=== PATIENT | female | born 1960 | race African-American/Black ===

== ENCOUNTER → 2018-06-05 12:54 | Outpatient (CLI) | payer MEDICARE, BC ==
[2015-03-22 06:36] VITALS: BMI 25.4
[~2018-06-05 12:54] MED LIST: ALBUTEROL2.5 MG/3 M UPD; AROMASIN25 MG PO; ASPIRIN81 MG PO; BACTROBAN 22 GM22 GM; BENADRYL25 M1 PO; BENADRYL50 MG PO; COLACE100 MG PO; COREG6.25 MG PO; FEMARA2.5 MG PO; FLEXERIL10 MG PO; FLORAJEN3 CAPS460 MG PO; HYDROCODONE-APA1 TAB PO; LEVAQUIN500 MG PO; LOPRESSOR25 MG PO; LOPRESSOR50 MG; MEGACE40 MG PO; MIDODRINE HCL2.5 MG PO; MOBIC7.5 MG PO; NEPHROCAPS SOFTG1 MG PO; NORCO 10/325 TA1 TA1 PO; NORCO 5/325 TAB1 TA1 PO; Narcan INJ IV; ONDANSETRON4 MG/2 M3 IV; PREDNISONE50 MG; PREDNISONE50 MG PO; PROAIR HFA8.5 GM INH; PROAMATINE10 MG PO; PROCRIT/EP4000 UNITS SC; PROTONIX40 MG; PROTONIX40 MG PO; REGLAN INJ10 MG/2 ML IV; RENA-VITE TABL0.8 MG PO; RENVELA800 MG PO; SENOKOT-S TABLE1 TAB PO; SENSIPAR30 MG PO; TESSALON PERLE100 MG PO; TUMS500 MG PO; [UNRECOGNIZED DRUG - CODE]
== END | disposition home or self-care (01) ==
LOC: D.US 12:54
DX: I65.23 Occlusion and stenosis of bilateral carotid arteries (principal)

== ENCOUNTER 2018-06-19 06:26 | Outpatient (CLI) | payer MEDICARE ==
[~2018-06-19] VITALS: Ht 167.6 cm; Wt 76.8 kg
--- NOTE | ~2018-06-19 | HEMODYNAMI ---
PATIENT:DONIS LEDBETTER MEDICAL RECORD: [id number] : 60 LOCATION:D.CAT ADMISSION DATE: 06/19/18 Generatedon:06/19/20189:45 Patient name: DONIS LEDBETTER Patient #: [id number] SSN: : 1 12/09/1959 Date of study: 06/19/2018 Page: Of Hemodynamic Procedure Report Patient Data Patient Demographics Procedure consent was obtained First Name: DONIS Gender: Female Last Name: KHLOE : 1960 [facility] Initial: JOSEPH Age: 57 year(s) Patient #: [id number] Race: Black Additional ID: [id number] Contact details [address]: [address] [place] [address] State: [place] City: [place] Zip code: [address] Past Medical History Allergies Allergen Reaction Date Comments Reported IV contrast dye 06/19/2018 Admission Admission Data Admission Date: 06/19/2018 Admission Time: 6:26 Lab Results Lab Result Date: 06/19/2018 Lab Result Time: 0:00 Biochemistry Name Units Result Min Max BUN mg/dl 41 --(----)-* 7 18 Creatinine mg/dl 8.2 --(----)-* 0.6 1.3 CBC Name Units Result Min Max Hemoglobin g/dl 12.6 -*(----)-- 13.5 17.5 Procedure Procedure Types Cath Procedure Diagnostic Procedure LHC C w/Coronaries Procedure Description Procedure Date Procedure Date: 06/19/2018 Procedure Start Time: 9:26 Procedure End Time: 9:43 Procedure Staff Name Function Edilberto Meadows MD Performing Physician Jose Alfredo Leal RT Monitor Jose Rafael Montes RN Nurse Dm Quevedo RT Scrub Estiven Peralta RT Monitor Procedure Data Cath Procedure Fluoroscopy Diagnostic fluoroscopy Total fluoroscopy Time: 1.4 time: 1.4 min min Diagnostic fluoroscopy Total fluoroscopy dose: dose: 102.43 mGy 102.43 mGy Contrast Material Contrast Material Type Amount (ml) Isovue 300 56 Entry Location Entry Primary Successful Side Size Upsize Upsize Entry Closure Succes sful Closure Location (Fr) 1 (Fr) 2 (Fr) Remarks Device Remarks Femoral Right 5 Fr Exoseal artery Estimated blood loss: 10 ml Diagnostic catheters Device Type Used For End Catheter Placement MULTIPACK JL 4.0 5Fr Procedure catheter MULTIPACK 3DRC 5Fr Procedure catheter MULTIPACK Pigtail 5 Fr Procedure catheter Procedure Medications Medication Administration Route Dosage Oxygen etCO2 Nasal cannula 2 l/min Heparin Flush Bag added to field 2 bags (1000units/500ml NS) 0.9% NaCl I.V. 100 ml/hr Fentanyl I.V. 50 mcg Versed I.V. 1 mg Hemodynamics Rest HGB: 12.6 (g/dl) Heart Rate: 72 (bpm) Pressure Samples Time Site Value (mmHg) Purpose Heart Use Rate(bpm) 9:29 AO 144/86(112) Snapshot 69 9:33 LV 156/-4,24 Snapshot 71 9:33 LV 153/-3,25 EDP 69 9:34 AO 157/86(117) Pullback 71 9:34 LV 146/3,30 Pullback 71 Gradients Valve Time Site 1 Site 2 Mean SEP/DFP Peak To Heart Use (mmHg) (sec/min) Peak Rate (mmHg) (bpm) Aortic 9:34 LV AO 0 6 0 71 146/3,30 157/86(117) Calculations Valve P-P Mean Valve Index Valve Source Name Gradient Area Flow (cm2) Aortic 0 0 0 0 Snapshots Pre Cath Intra NCS Post Cath Vital Signs Time Heart Resp SPO2 etCO2 NIBP (mmHg) Rhythm Pain Sedation Rate (ipm) (%) (mmHg) Status Level (bpm) 9:05:06 70 17 99 0 171/102(140) NSR 0 (11) 10(A) , No pain 9:09:26 72 17 100 30.8 170/103(145) NSR 0 (11) 10(A) , No pain 9:13:48 69 16 100 30.8 167/95(140) NSR 0 (11) 10(A) , No pain 9:18:06 68 16 100 30.1 148/89(123) NSR 0 (11) 10(A) , No pain 9:22:22 67 17 100 31.6 138/86(117) NSR 0 (11) 10(A) , No pain 9:26:34 69 17 99 29.3 139/94(121) NSR 0 (11) 9(A) , No pain 9:30:48 71 16 100 31.6 147/92(126) NSR 0 (11) 9(A) , No pain 9:35:04 71 17 99 33.8 142/94(124) NSR 0 (11) 9(A) , No pain 9:37:44 68 16 100 32.3 148/89(125) NSR 0 (11) 9(A) , No pain 9:42:00 71 11 99 30.1 141/90(121) NSR 0 (11) 9(A) , No pain Medications Time Medication Route Dose Verified Delivered Reason Notes Effec tiveness by by 9:04:37 Oxygen etCO2 2 Edilberto Jose Rafael Per Nasal l/min Abdiel Montes RN physician cannula 9:09:29 Heparin Flush added 2 Edilberto Jose Rafael used for Bag to bags Abdiel Montes wireless cellular technician (1000units/500ml field NS) 9:09:40 0.9% NaCl I.V. 100 Edilberto Jose Rafael Per ml/hr Abdiel Montes RN physician 9:23:55 Fentanyl I.V. 50 Edilberto Jose Rafael for mcg Abdiel Montes RN sedation 9:24:03 Versed I.V. 1 mg Edilberto Jose Rafael for Abdiel Montes RN sedation Procedure Log Time Note 8:40:22 Jose Alfredo Leal RT(R) (CV) sent for patient. Start room use. 9:00:49 Time tracking: Regular hours (M-F 7:00 - 5:00) 9:00:54 Plan of Care:Hemodynamics will remain stable., Cardiac rhythm will remain stable., Comfort level will be maintained., Respiratory function will remain adequate., Patient/ family verbilizes understanding of procedure., Procedure tolerated without complication., Recovers from procedure without complications.. 9:01:01 Patient received from Pre/Post Procedure Room to [facility] 3 Alert and oriented. Tansferred to table in Supine position. 9:01:02 Warm blankets applied, and valeria hugger turned on for patient comfort. 9:01:02 Correct patient and procedure confirmed by team. 9:01:03 Signed procedure consent form obtained from patient. 9:01:04 ECG and BP/O2 sat monitors applied to patient. 9:03:52 Vital chart was started 9:04:37 Oxygen 2 l/min etCO2 Nasal cannula was administered by Jose Rafael Montes RN; Per physician; 9:06:04 Baseline sample Acquired. 9:06:07 Rhythm: sinus rhythm 9:06:09 Full Disclosure recording started 9:06:45 H&P Date Dictated: 06/19/2018 New H&P dictated by physician.. 9:06:47 Pre-procedure instructions explained to patient. 9:06:48 Pre-op teaching completed and patient verbalized understanding. 9:06:51 Patient NPO since Midnight. 9:06:58 Patient allergic to IV contrast dye 9:07:17 PATIENT PRE-MEDICATED 9:07:24 Is the patient allergic to Iodine/contrast media? Yes. 9:07:25 Was the patient premedicated? Yes 9:07:32 Is patient on blood thinner?No 9:07:36 Patient diabetic? No. 9:07:46 Patient not . Patient is over age 55. 9:07:48 ----Pre-sedation anethsthesia assessment.---- 9:08:00 Previous problem with sedation/anesthesia? No ? 9:08:03 Snore? Yes 9:08:05 Sleep apnea? No 9:08:13 Deviated septum? No 9:08:14 Opens mouth fully? Yes 9:08:15 Sticks out tongue? Yes 9:08:19 Airway obstruction? No ? 9:08:23 Dentures? No ? 9:08:31 Pre procedure: right dorsailis pedis pulse 1+ Palpable, but thready & weak; easily obliterated 9:08:34 Patient pain scale 0/10 ?. 9:09:29 Heparin Flush Bag (1000units/500ml NS) 2 bags added to field was administered by Jose Rafael Montes RN; used for procedure; 9:09:40 0.9% NaCl 100 ml/hr I.V. was administered by Jose Rafael Motnes RN; Per physician; 9:12:26 IV patent on arrival in right antecubital with 0.9% NaCl at [facility]. 9:13:15 Lab Result : BUN 41 mg/dl 9:13:15 Lab Result : Creatinine 8.2 mg/dl 9::15 Lab Result : Hemoglobin 12.6 g/dl 9:13:21 Lab results completed and on chart. 9:13:24 Right groin area was prepped with chlora-prep and draped in sterile fashion 9:: Alarms reviewed by R. N. 9:: Sharps counted by scrub and verified by R.N. 9:17:06 Zero performed for pressure channel P1 9:17:34 Use device set Femoral Dx 9:17:38 ACIST Syringe (50197) opened to sterile field. 9:17:39 Bag Decanter (2002S) opened to sterile field. 9:17:40 Medline Cath Pack ([id number]) opened to sterile field. 9:17:44 DIAGNOSTIC WIRE .035 260cm J wire ([id number]) opened to sterile field. 9:17:47 ACIST Hand Control (00658) opened to sterile field. 9:17:47 ACIST Manifold (37716) opened to sterile field. 9:17:48 DIAGNOSTIC Multipack 5Fr catheter set (AZ5957) opened to sterile field. 9:17:49 Tegaderm 4 x 4 (1626W) opened to sterile field. 9:17:51 SHEATH Prelude 5Fr 0.035 ([id number]) opened to sterile field. 9:22:57 Physician arrived 9::57 --------ALL STOP TIME OUT------ 9:22:58 Final Timeout: patient, procedure, and site verified with staff and physician. All members of the team are in agreement. 9:23:00 Right groin site verified by team. 9:23:22 Physical assessment completed. ASA score P 3 - A patient with severe systemic disease as per Edilberto Meadows MD. 9:23:27 Sedation plan: IV Moderate Sedation Medication:Versed, Fentanyl 9:23:55 Fentanyl 50 mcg I.V. was administered by Jose Rafael Montes RN; for sedation; 9:24:03 Versed 1 mg I.V. was administered by Jose Rafael Montes RN; for sedation; 9::13 Procedure started. 9:26:31 Local anesthetic to right femoral artery with Lidocaine 2% by Edilberto Meadows MD.INITIAL ACCESS ONLY 9:28:36 A 5 Fr sheath was inserted into the Right Femoral artery 9:28:47 A MULTIPACK JL 4.0 5Fr catheter was advanced over the wire and used for Procedure. 9:29:36 LCA angiography performed. 9:30:34 Catheter removed. 9:30:59 A MULTIPACK 3DRC 5Fr catheter was advanced over the wire and used for Procedure. 9:31:41 RCA angiography performed. 9:31:57 Catheter removed. 9:32:00 EXOSEAL 5Fr (EX500) opened to sterile field. 9:32:37 A MULTIPACK Pigtail 5 Fr catheter was advanced over the wire and used for Procedure. 9:33:38 LV hemodynamics recorded. 9:33:40 LV gram done using MCDANIELS 9:33:47 EF : 50 % 9:34:41 Catheter removed. 9:35:00 Sheath removed intact; hemostasis achieved with Exoseal to the Right Femoral artery. 9:35:06 Procedure ended.(Physican Out) 9:35:25 Fluoroscopy time 01.40 minutes. 9:35:32 Fluoroscopy dose: 102.43 mGy 9:35:32 Flurop Dose total: 102.43 9:35:37 Contrast amount:Isovue 300 56ml. 9:35:40 Sharps counted by scrub and verified by R.N. 9:38:48 Procedure and supply charges have been captured, reviewed, submitted and are correct. 9:42:06 Insertion/operative site no bleeding no hematoma. 9:42:10 Post-op/insertion site Right Femoral artery dressed using a 4 x 4 and Tegaderm. 9:42:21 Post right femoral artery:stable 9:42:50 Post procedure: right dorsailis pedis pulse 1+ Palpable, but thready & weak; easily obliterated. 9:42:56 Post-procedure physical assessment completed. ASA score P 3 - A patient with severe systemic disease as per Edilberto Meadows MD. 9:43:01 Post procedure rhythm: sinus rhythm 9:43:06 Estimated blood loss: 10 ml 9:43:08 Post procedure instruction explained to patient.Patient verbalizes understanding. 9:43:08 Patient needs reinforcement of post procedure teaching. 9:43:12 Vital chart was stopped 9:43:12 See physician's report for complete and final results. 9:43:15 Report given to Pre/Post Procedure Room. 9:43:19 Patient transfered to Pre/Post Procedure Room with Stretcher. 9:43:22 Procedure ended. 9:43:22 Full Disclosure recording stopped 9:43:26 End room use (Document Last) Device Usage Item Name Manufacture Quantity Catalog Number Hospital Part Current M inimal Lot# / Charge Number Stock Stock Serial# Code ACIST Syringe Acist 1 14479 077678 667470 232632 2 0 (45376) [employer] Bag Decanter Microtek 1 2001S [id number] 88095 [id number] 5 (2001S) Medical Inc. Medline Cath Cardinal 1 [id number] 092935 16878 971818 5 Pack Health ([id number]) DIAGNOSTIC WIRE St Dino 1 356014 617880 040015 914421 3 0 .035 260cm J wire (157946) ACIST Hand Acist 1 04398 974157 688722 867587 5 Control (75509) [employer] Inc ACIST Manifold Acist 1 42794 710680 926899 554751 5 (27313) [employer] Inc DIAGNOSTIC Cardinal 1 [id number] 530704 98653 509684 3 0 Multipack 5Fr Health catheter set (US1185) Tegaderm 4 x 4 3M 1 1626W 388835 578167 200450 5 (1626W) SHEATH Prelude Merit 1 [id number] 787233 529294 763603 5 5Fr 0.035 Medical ([id number]-[id number]-[id number]) MULTIPACK JL Cardinal 1 [id number] 5 4.0 5Fr Health catheter MULTIPACK 3DRC Cardinal 1 250464 5 5Fr catheter Health EXOSEAL 5Fr Cardinal 1 EX500 657360 391305 700419 1 0 (EX500) Health MULTIPACK Cardinal 1 880720 5 Pigtail 5 Fr Health catheter Signature [place]it [place] Stage Time Signature Unsigned Intra-Procedure 06/19/2018 Estiven Peralta 9:45:24 AM RT(R) Signatures Monitor : Jose Alfredo Leal RT Signature : Date : Time : Monitor : Estiven Peralta RT Signature : Date : Time : [place] [address] [place] [address]
[~2018-06-19 06:26] MED LIST changes: -ALBUTEROL2.5 MG/3 M UPD; -ASPIRIN81 MG PO; -COLACE100 MG PO; -FEMARA2.5 MG PO; -FLORAJEN3 CAPS460 MG PO; -HYDROCODONE-APA1 TAB PO; -MIDODRINE HCL2.5 MG PO; -Narcan INJ IV; -ONDANSETRON4 MG/2 M3 IV; -PROCRIT/EP4000 UNITS SC; -REGLAN INJ10 MG/2 ML IV; -RENA-VITE TABL0.8 MG PO; -SENOKOT-S TABLE1 TAB PO
[2018-06-19] MEDS ORDERED: RENA-VITE TABL0.8 MG PO (07:03)
[2018-06-19 07:13] VITALS: BP 151/74; Ht 167.6 cm; Wt 76.8 kg
[2018-06-19 07:26] LABS: BASOPHILS 0.2 % (0-2); EOSINOPHILS 0.2 % (0-7); HEMATOCRIT 37.6 % (36.0-48.0); HEMOGLOBIN 12.6 g/dL (12-16); IMMATURE GRANULOCYTES 0.2 % (0-5); MCH 30.4 pg (26.0-34.0); MCHC 33.5 g/dL (31.0-37.0); MCV 90.8 fL (80.0-100.0); MEAN PLATELET VOLUME 10.9 fL (7.4-10.4); NEUTROPHILS 85.4 % (40-80); PLATELET COUNT 163 10x3/uL (130-400); RBC 4.14 10x6/uL (4.00-5.40); RDW 14.4 % (11.5-14.5); WBC 5.2 10x3/uL (4.8-10.8)
[2018-06-19 07:54] LABS: CALCIUM 8.7 mg/dL (8.5-10.1); CARBON DIOXIDE 28.7 mmol/L (21.0-32.0); CREATININE - SERUM 8.2 mg/dL (0.6-1.3)
[2018-06-19 07:59] LABS: ANION GAP 14.9 mmol/L (8-16); POTASSIUM - SERUM 4.6 mmol/L (3.5-5.1)
[2018-07-07] MEDS ORDERED: FEMARA2.5 MG PO (15:02)
[2018-07-07] MEDS ORDERED: MEGACE40 MG PO (15:04)
== END 2018-06-19 12:05 | disposition home or self-care (01) ==
LOC: D.CATH 06:26
PROVIDERS: Internal Medicine Cardiovascular Disease
DX: I07.1 Rheumatic tricuspid insufficiency (principal); I51.5 Myocardial degeneration; I13.11 Hypertensive heart and chronic kidney disease without heart failure, with stage 5 chronic kidney disease, or end stage renal disease; N18.6 End stage renal disease

== ENCOUNTER 2018-07-01 11:29 | Emergency (ER) | payer MEDICARE ==
[~2018-07-01] VITALS: Ht 167.6 cm; Wt 76.8 kg
[~2018-07-01 11:29] MED LIST changes: +RENA-VITE TABL0.8 MG PO
[2018-07-01 11:38] VITALS: Ht 167.6 cm; Wt 76.8 kg
[2018-07-01 12:14] LABS: BASOPHILS 0.3 % (0-2); EOSINOPHILS 2.3 % (0-7); HEMATOCRIT 38.2 % (36.0-48.0); HEMOGLOBIN 12.7 g/dL (12-16); IMMATURE GRANULOCYTES 0.1 % (0-5); LYMPHOCYTES 17.3 % (15-50); MCH 30.5 pg (26.0-34.0); MCHC 33.2 g/dL (31.0-37.0); MCV 91.6 fL (80.0-100.0); MEAN PLATELET VOLUME 10.9 fL (7.4-10.4); MONOCYTES 3.2 % (2-11); NEUTROPHILS 76.8 % (40-80); PLATELET COUNT 142 10x3/uL (130-400); RBC 4.17 10x6/uL (4.00-5.40); RDW 14.6 % (11.5-14.5); WBC 7.7 10x3/uL (4.8-10.8)
[2018-07-01 14:33] LABS: ALBUMIN 4.5 g/dL (3.4-5.0); ANION GAP 14.9 mmol/L (8-16); BILIRUBIN - TOTAL 1.26 mg/dL (0.2-1.3); CALCIUM 8.5 mg/dL (8.5-10.1); CARBON DIOXIDE 30.1 mmol/L (21.0-32.0); PROTEIN - SERUM 8.3 g/dL (6.4-8.2)
[2018-07-01 17:43] LABS: BASOPHILS 0.4 % (0-2); EOSINOPHILS 2.4 % (0-7); HEMATOCRIT 32.7 % (36.0-48.0); HEMOGLOBIN 10.8 g/dL (12-16); IMMATURE GRANULOCYTES 0.1 % (0-5); LYMPHOCYTES 19.3 % (15-50); MCH 30.2 pg (26.0-34.0); MCV 91.3 fL (80.0-100.0); MEAN PLATELET VOLUME 10.8 fL (7.4-10.4); MONOCYTES 3.6 % (2-11); NEUTROPHILS 74.2 % (40-80); PLATELET COUNT 129 10x3/uL (130-400); RBC 3.58 10x6/uL (4.00-5.40); RDW 14.5 % (11.5-14.5); WBC 8.5 10x3/uL (4.8-10.8)
[2018-07-01 23:40] VITALS: BP 110/75
[2018-07-07] MEDS ORDERED: FEMARA2.5 MG PO (15:02)
[2018-07-07] MEDS ORDERED: MEGACE40 MG PO (15:04)
== END 2018-07-01 23:40 | disposition other institution (70) ==
LOC: D.ER 11:29
PROVIDERS: Emergency Medicine
DX: N93.9 Abnormal uterine and vaginal bleeding, unspecified (principal); D49.59 Neoplasm of unspecified behavior of other genitourinary organ; I12.9 Hypertensive chronic kidney disease with stage 1 through stage 4 chronic kidney disease, or unspecified chronic kidney disease; N18.9 Chronic kidney disease, unspecified; Z99.2 Dependence on renal dialysis

== ENCOUNTER 2018-07-08 05:00 | Inpatient (IN) | payer MEDICARE ==
[2018-07-07 16:50] LABS: BASOPHILS 0.4 % (0-2); EOSINOPHILS 2.8 % (0-7); HEMATOCRIT 27.8 % (36.0-48.0); HEMOGLOBIN 9.3 g/dL (12-16); IMMATURE GRANULOCYTES 0.3 % (0-5); LYMPHOCYTES 23.2 % (15-50); MCH 29.7 pg (26.0-34.0); MCHC 33.5 g/dL (31.0-37.0); MCV 88.8 fL (80.0-100.0); MEAN PLATELET VOLUME 9.8 fL (7.4-10.4); NEUTROPHILS 67.3 % (40-80); RBC 3.13 10x6/uL (4.00-5.40); RDW 14.6 % (11.5-14.5); WBC 7.5 10x3/uL (4.8-10.8)
[2018-07-07 17:01] LABS: INR 1.11 (0.85-1.17); PROTIME 13.9 SECONDS (11.6-15.0)
[2018-07-07 17:02] LABS: APTT 33.4 SECONDS (22.8-39.4)
[2018-07-07 17:05] LABS: PLATELET COUNT 166 10x3/uL (130-400)
[2018-07-07 17:16] LABS: ALBUMIN 3.8 g/dL (3.4-5.0); ANION GAP 15.2 mmol/L (8-16); BILIRUBIN - TOTAL 0.66 mg/dL (0.2-1.3); CALCIUM 8.5 mg/dL (8.5-10.1); CREATININE - SERUM 7.4 mg/dL (0.6-1.3); PHOSPHOROUS 3.9 mg/dL (2.5-4.9); POTASSIUM - SERUM 4.2 mmol/L (3.5-5.1); PROTEIN - SERUM 7.4 g/dL (6.4-8.2); T4 THYROXIN - FREE 1.03 ng/dL (0.76-1.46); THYROID STIMULATING HORMONE 2.07 uIU/mL (0.36-3.74)
[~2018-07-08] VITALS: Ht 167.6 cm; Wt 87.2 kg
[2018-07-08] VITALS (44 sets, daily range): BP systolic 89–127; BP diastolic 51–79; BMI 27.0; BMI 29.5
--- NOTE | ~2018-07-08 | HP ---
PATIENT: DONIS LEDBETTER MEDICAL RECORD: [id number] ACCOUNT: [id number] LOCATION:[facility].CV03 : 60 ADMISSION DATE: 07/08/18 PCP: AVTAR BETH MD HISTORY AND PHYSICAL EXAMINATION DONIS Thorpe (57yo, F) ID# [id number]. Date/Time06/26/2018 11:58QSJKG1960Service Dept.NP_[facility] ClinicProviderEDSY BETH MDInsuranceMed Primary: [place] Insurance # : [id number] Referring Provider Name : FELISHA OROZCO Employer Name : RETIRED Prescription: CMX - Member is eligible. Chief Complaint Followup: Tricuspid valve regurgitation preop Patient's Care Team Referring Provider (): FELISHA OROZCO: [address] [place] [phone], , Other: ALLISON GALE MD: [address] [address], , Patient's Pharmacies [facility] (ERX): [address] [facility] [address], , Vitals BP:144/78 sitting R arm 06/26/2018 12:22 pmHR:78/reg 06/26/2018 12:22 pmHt:5 ft 6 in 06/26/2018 12:19 pmWt:169 lbs 06/26/2018 12:20 pmBMI:27.3 06/26/2018 12:20 pmAllergies Reviewed Allergies IODINEMedications Reviewed Medications carvedilol 6.25 mg yiggiy73/16/18 filledCaremarkcephALEXin 500 mg /25/17 filledCaremarkclindamycin HCl 300 mg capsule Take 1 capsule(s) every 6 hours by oral route.01/15/18 filledCaremarkmidodrine 10 mg lvhidx75/11/18 filledCaremarkpredniSONE 50 mg ydocao62/12/18 filledCaremarkRenal Kfgvfoe02/11/17 enteredJanet LindseyRenvela 800 mg /26/18 filledCaremarkSensipar 30 mg mvsnnu07/15/17 filledCaremarksulfamethoxazole 800 mg-trimethoprim 160 mg tablet Take 1 tablet(s) every 12 hours by oral route.02/04/18 filledCaremarkProblems Reviewed Problems Dependence on hemodialysis - Onset: 05/20/2018 Tricuspid valve regurgitation - Onset: 05/20/2018 Benign tumor of peritoneum and retroperitoneum Angina pectoris Umbilical hernia Ventral incisional hernia End stage renal disease Atelectasis Essential hypertension Pleural effusion Family History Reviewed Family History Maternal Grandmother- Malignant tumor of breast - previously recorded as Cancer, BreastFather- No current problems or disability HISTORY AND PHYSICAL [id number] DONIS LEDBETTER - StrokeMother- No current problems or disability - StrokeSocial History Reviewed Social History Cardiology and General Family history of heart disease?: Y Smoking Status: Never smoker High Cholesterol: N High blood pressure: Y Surgical History Reviewed Surgical History Other - AVF Laparoscopic ventral hernia repair - 08/04/2013 Laparoscopic ventral hernia repair - 05/07/2013 CARDIAC CATH 12/07/14 [employer]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 IAB. [id number] Medical History Reviewed Past Medical History Anemia: Y - anemia of chronic disease Bladder Problems: Y Cancer: Y - 2 MASSES ON PELVIC AREA Heart Murmur: Y Kidney Disease: Y Kidney Failure: Y - ESRD Valve disease: Y - TRICUSPID REGURG Notes: Benign pelvic mesothelioma Documents for Discussion Discussed the following documents: US, DUPLEX, CAROTID ARTERY - 06/05/18 CARDIAC CATHETERIZATION (SURG) - 06/19/18 Screening None recorded. HPI Valvular Heart Disease Reported by patient. Context: tricuspid regurg Aortic Stenosis: last echo date 05/13/18 Associated Symptoms: palpitations; denies fatigue, sob, chest pain severe tricuspid regurgitation ROS Patient reports exercise intolerance but reports no fever, no night sweats, no significant weight gain, and no significant weight loss. She reports jugular vein distension but reports no swollen glands. She reports known heart murmur but reports no chest pain, no arm pain on exertion, no shortness of breath when walking, no shortness of breath when lying down, and no palpitations. She reports no dry eyes, no irritation, and no vision change. She reports no difficulty heari ng and no ear pain. She reports no frequent nosebleeds and no nose/sinus problems. She reports no sore throat, no bleeding gums, no snoring, no dry mouth, no mouth ulcers, no oral abnormalities, and no teeth problems. She reports no cough, no wheezing, no shortness of breath, and no coughing up blood. She reports no abdominal pain, no HISTORY AND PHYSICAL [id number] LEDBETTER,DONIS JOSEPH vomiting, normal appetite, no diarrhea, not vomiting blood, no nausea, and no constipation. She reports no incontinence, no difficulty urinating, no hematuria, and no increas e d frequency. She reports no muscle aches, no muscle weakness, no arthralgias/joint pain, no back pain, and no swelling in the extremities. She reports no abnormal mole, no jaundice, and no rashes. She reports no loss of consciousness, no weakness, no numb n ess, no seizures, no dizziness, and no headaches. She reports no depression, no sleep disturbances, feeling safe in relationship, and no alcohol abuse. She reports no fatigue. She reports no swollen glands and no bruising. She reports no runny nose, no si nus pressure, no itching, no hives, and no frequent sneezing. ROS as noted in the HPI Physical Exam Patient is a 57-year-old female. Constitutional: General Appearance well nourished and developed and healthy-appearing. Level of Distress NAD. Ambulation ambulating normally. Cardiovascular: Apical Impulse not displaced or no thrill. Heart Auscultation normal s1 and s2, no rubs or gallops, and RRR and murmur (tricuspid regurgitation). Arterial Pulses no abdominal aorta bruits, femoral bruits, or popliteal bruits and 2+ bilateral, carotid 2+ bilateral, femoral 2+ bilateral, popliteal 2+ bilateral, and dorsalis pedis 2+ bilateral. Edema no edema or varicosities. Lungs: Repiratory Effort no dyspnea. Percussion no hyperresonance or dullness or flatness. Auscult ation no wheezing or rhonchi and breathing sounds normal, good air movement, CTA except as noted, and rales / crackles on the left. Abdomen: Bowl Sounds normal. Inspection and Palpation no tenderness, guarding, masses, or rebound tenderness and soft and n on-distended. Liver non-tender and no hepatomegaly. Spleen non-tender and no splenomegaly. Hernia none palpable. Musculoskeletal System: Gait And Stance normal gait and stance. Digits and Nails normal nails and no cyanosis. Neurologic: Cranial Nerves grossly intact. Reflexes DTRs 2+ bilaterally throughout. Sensation grossly intact. Lymph Nodes: Lymph Nodes no cervical LAD, supraclavicular LAD, axillary LAD, or inguinal LAD. Eyes: Lids and Conjunctivae no discharge or pallor and non-injected. Pupils PERRLA. Cornea grossly intact. EOM EOMI. Lens clear. Sclera non-icteric. Neck: Neck no masses, enlarged lymph nodes, or carotid bruits and supple and trachea midline; jugular venous distention with bhatia waves . Thyroid no enlargement or nodules and non-tender. Skin: Inspection and Palpation no rash, lesions, ulcers, jaundice, or abnormal nevi. Assessment / Plan severe tricuspid regurgitation 1. 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 End stage renal disease N18.6: End stage renal disease END-STAGE RENAL DISEASE: CARE INSTRUCTIONS 3. Essential hypertension I10: Essential (primary) hypertension HIGH BLOOD PRESSURE: CARE INSTRUCTIONS LEARNING ABOUT HIGH BLOOD PRESSURE 4. Dependence on hemodialysis Z99.2: Dependence on renal dialysis Discussion Notes patient would benefit from tricuspid valve repair or replacement I have discussed her disease process with her in detail as well as the alternative methods of treatment. We discussed tricuspid valve repair or replacement including the expected benefits and risk which include bleeding, infection, stroke, , and imponderables. She understands all of the above and would like proceed with surgery. She has been scheduled for 08 July. Notify renal of her admission AVTAR BETH MD at 1234 CC: [id number] DICTATION DATE: 06/26/18 1120 DATA ENTRY SUPERVISOR: TOÑO 07/03/18 1054 DIS IN 07/18/18 [id number] [place] [address]
--- NOTE | ~2018-07-08 | OP ---
PATIENT NAME: DONIS LEDBETTER MEDICAL RECORD: [id number] :60 [facility] ADMISSION DATE:07/08/18 SURGEON: GOLDEN MOBLEY MD DATE OF OPERATION: 07/08/2018 SURGEON: Golden Mobley MD SOCIAL MEDIA EXECUTIVE: Randolph Lees MD ANESTHESIA: General endotracheal. OPERATIONS PERFORMED: 1. Attempted mitral valve repair with neochordae and MC3 annuloplasty ring. 2. Tricuspid valve repair utilizing a [employer] Dino tissue valvular prosthesis. PREOPERATIVE DIAGNOSIS: Severe mitral regurgitation. POSTOPERATIVE DIAGNOSIS: Ruptured chordae in anterior leaflet of the tricuspid valve and degeneration of the valve circumferentially. INDICATION FOR OPERATION: Severe symptomatic tricuspid regurgitation. FINDINGS AT OPERATION: 1. Ruptured chordae tendineae in the anterior leaflet. 2. Prolapse of the septum and posterior leaflets. Severe degeneration of the chordae tendineae. ESTIMATED BLOOD LOSS: Cell Saver was used. DESCRIPTION OF PROCEDURE: After informed consent, adequate preoperative medication, and evaluation, the patient was brought to the operating room and placed on the table in supine position. After induction of general endotracheal anesthesia and application of appropriate monitoring devices, chest, neck, abdomen, and both legs were prepped and draped in a sterile field utilizing Betadine scrub, alcohol, and Betadine solution. Betadine-impregnated drape was also used. A midline incision was made and dissection was carried down to the fascia. Hemostasis was maintained with electrocautery. Sternum was divided. Innominate vein was identified and protected. The pericardium was opened. A pericardial well was performed utilizing pericardial traction sutures. The patient was cannulated in standard fashion utilizing one aortic and two atrial cannulas with caval tapes. Myocardial cooling pen and temperature probe were also used, placed on cardiopulmonary bypass, cooled to 32 degrees centigrade. A crossclamp was placed just proximal to the aortic cannula and the patient was given cardioplegic solution through the aortic root. The patient was given a cold induction and cold maintenance. The patient was given cold intermittent cardioplegic solution throughout the procedure through the root. The right atrium was opened. The valve was examined and tested. The chordae were elongated but were felt to be adequate posteriorly on the septal leaflet. The anterior leaflet was smaller than the septal leaflet and there were ruptured chordae tendineae on the anterior leaflet. The chordae were measured from the more normal chordae and 20-mm chords were chosen. Three neochoradae were placed in the anterior leaflet and tested with much better result. The valve sized to a 26 annuloplasty ring. An MC3 annuloplasty ring was used. Circumferential valve sutures were placed except for the conduction area. They were placed through the ring, lowered into position, and secured. The valve was tested and OPERATIVE REPORT [id number] KHLOEDONIS JOSEPH there was still enlarged prolapse from the septal leaflet that was not tolerable. Therefore, the ring was removed as well as the neochordae. The valve was excised. Circumferential valve sutures were placed and the sutures were placed through the [address] Dino tissue valve lowered into position and secured. The right atrium was closed. The patient was rewarmed. She was given warm cardioplegic reperfusion and controlled reperfusion, rewarmed to 37 degrees centigrade. Two atrial and two ventricular pacing wires were placed in the heart and brought out through the epigastric area. The patient was weaned from cardiopulmonary bypass. After being stable off bypass, she was given calculated dose of protamine to reverse the heparin. Hemostasis was achieved. The #40 right angle and #36 chest tubes were brought in through the epigastric area and placed in mediastinum. Chest was again irrigated. Instrument counts and sponge counts were correct times 2. Chest was closed in layers utilizing #7 wire on the sternum, #2 Vicryl on linea alba and pectoralis fascia. Subcutaneous tissue was approximated with 3-0 Vicryl and skin was approximated with skin farhan. Sterile dressings were applied. The patient tolerated the procedure well and was transferred to the CV ICU in satisfactory condition. TRANSINT:[id number] Voice Confirmation ID: [id number] DOCUMENT ID: [id number] GOLDEN MOBLEY MD at 1234 CC: [id number] DICTATION DATE: 07/08/18 1417 WEIGHTS AND MEASURES SEALER: 07/08/18 1533 DIS IN 07/18/18 [id number] [place] [address]
--- NOTE | ~2018-07-08 | TEE ---
PATIENT:DONIS LEDBETTER MEDICAL RECORD: [id number] LOCATION:[place] [address] AGE OF PATIENT: 57 ADMISSION DATE: 07/08/18 SEX: F REFERRING PHYSICIAN: INTERPRETING PHYSICIAN: MARQUEZ LION MD TRANSESOPHAGEAL ECHOCARDIOGRAM Date: 07/08/18 CHRISTIAN CHARGE Y INDICATIONS: TRICUSPID VALVE REPLACEMENT PREMEDICATIONS: PATIENT'S RESPONSE PROCEDURE DOPPLER MEASUREMENTS: LVIT LA PA RA LVOT RVOT Asc. 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 [place] Bank Note Designer: Elizabeth VERDUZCO COMMENTS: KIRIT PATIENT DATE OF SERVICE: 07/08/2018 PROCEDURE: Transesophageal echo evaluation of valvular structures during tricuspid valve replacement surgery. FINDINGS: 1. Left ventricular chamber size is within normal limits. Left ventricular systolic function is normal. Overall ejection fraction estimated at 60%. 2. Left atrium is within normal limits. Right atrium and right ventricular TRANSESOPHAGEAL ECHOCARDIOGRAM REPORT [id number] DONIS LEDBETTER chamber sizes are mildly dilated. 3. Valvular structures have normal structure and motion. 4. Doppler interrogation only reveals severe tricuspid regurgitation. This is not a new finding. The patient is scheduled for tricuspid valve replacement. Doppler interrogation elsewise reveals no significant valvular insufficiency or stenosis. 5. No evidence of pericardial effusion or left ventricular thrombus. TRANSINT:[id number] Voice Confirmation ID: [id number] DOCUMENT ID: [id number] at 1806 CC: [id number] DICTATION DATE: 07/08/18 1150 LEVELER HELPER: 07/08/18 1419 ADM IN [place] [id number] [place] [address]
[~2018-07-08 05:00] MED LIST changes: +FEMARA2.5 MG PO
[2018-07-08 05:49] LABS: APPEARANCE CLOUDY (CLEAR); BILIRUBIN NEGATIVE (NEGATIVE); COLOR YELLOW (YELLOW); GLUCOSE NEGATIVE (NEGATIVE); KETONE NEGATIVE (NEGATIVE); NITRITE NEGATIVE (NEGATIVE); PROTEIN 3+ mg/dL (NEGATIVE); UROBILINOGEN NORMAL (NORMAL)
[2018-07-08 05:50] LABS: BACTERIA MANY /hpf (NONE SEEN); EPITHELIAL CELLS 0-5 /hpf (0-5)
[2018-07-08 08:24] LABS: PLT FUNCT.(P2Y12) PLAVIX 305 PRU (194-418)
[2018-07-08 13:36] LABS: MCH 29.8 pg (26.0-34.0); MCV 87.6 fL (80.0-100.0); MEAN PLATELET VOLUME 9.6 fL (7.4-10.4); RDW 14.9 % (11.5-14.5); WBC 5.8 10x3/uL (4.8-10.8)
[2018-07-08 13:40] LABS: CARBON DIOXIDE 26.1 mmol/L (21.0-32.0); CREATININE - SERUM 7.1 mg/dL (0.6-1.3); RBC 2.42 10x6/uL (4.00-5.40)
[2018-07-08 13:41] LABS: ANION GAP 12.8 mmol/L (8-16); CALCIUM 10.9 mg/dL (8.5-10.1); HEMATOCRIT 21.2 % (36.0-48.0); POTASSIUM - SERUM 4.9 mmol/L (3.5-5.1)
[2018-07-08 13:42] LABS: APTT 37.8 SECONDS (22.8-39.4); HEMOGLOBIN 7.2 g/dL (12-16); INR 1.47 (0.85-1.17); PROTIME 17.3 SECONDS (11.6-15.0)
[2018-07-09] VITALS (69 sets, daily range): BP systolic 86–121; BP diastolic 46–66; Ht 167.6 cm; Wt 87.2 kg
[2018-07-09 05:12] LABS: HEMATOCRIT 24.6 % (36.0-48.0); HEMOGLOBIN 8.5 g/dL (12-16); MCH 29.4 pg (26.0-34.0); MCHC 34.6 g/dL (31.0-37.0); MEAN PLATELET VOLUME 9.9 fL (7.4-10.4); RBC 2.89 10x6/uL (4.00-5.40); RDW 15.7 % (11.5-14.5)
[2018-07-09 05:17] LABS: MCV 85.1 fL (80.0-100.0); WBC 9.3 10x3/uL (4.8-10.8)
[2018-07-09 05:30] LABS: ALBUMIN 4.3 g/dL (3.4-5.0); BILIRUBIN - TOTAL 1.52 mg/dL (0.2-1.3); CALCIUM 8.6 mg/dL (8.5-10.1); CARBON DIOXIDE 23.2 mmol/L (21.0-32.0); POTASSIUM - SERUM 5.2 mmol/L (3.5-5.1); PROTEIN - SERUM 6.8 g/dL (6.4-8.2)
[2018-07-09 05:31] LABS: CREATININE - SERUM 8.9 mg/dL (0.6-1.3)
[2018-07-10] VITALS (24 sets, daily range): BP systolic 85–107; BP diastolic 48–67
[2018-07-10 06:37] LABS: BASOPHILS 0.2 % (0-2); EOSINOPHILS 4.7 % (0-7); HEMATOCRIT 25.3 % (36.0-48.0); HEMOGLOBIN 8.5 g/dL (12-16); IMMATURE GRANULOCYTES 0.3 % (0-5); LYMPHOCYTES 7.6 % (15-50); MCHC 33.6 g/dL (31.0-37.0); MCV 86.3 fL (80.0-100.0); MEAN PLATELET VOLUME 10.8 fL (7.4-10.4); MONOCYTES 6.7 % (2-11); NEUTROPHILS 80.5 % (40-80); PLATELET COUNT 86 10x3/uL (130-400); RBC 2.93 10x6/uL (4.00-5.40); RDW 15.8 % (11.5-14.5); WBC 6.4 10x3/uL (4.8-10.8)
[2018-07-10 06:47] LABS: ALBUMIN 3.7 g/dL (3.4-5.0); ANION GAP 18.8 mmol/L (8-16); BILIRUBIN - TOTAL 1.18 mg/dL (0.2-1.3); CALCIUM 8.6 mg/dL (8.5-10.1); CARBON DIOXIDE 24.5 mmol/L (21.0-32.0); PHOSPHOROUS 5.6 mg/dL (2.5-4.9); POTASSIUM - SERUM 5.3 mmol/L (3.5-5.1); PROTEIN - SERUM 6.9 g/dL (6.4-8.2)
[2018-07-10 07:10] LABS: PLATELET ESTIMATE DECREASED
[2018-07-11] VITALS (24 sets, daily range): BP systolic 83–108; BP diastolic 53–70
[2018-07-11 05:29] LABS: BASOPHILS 0 % (0-2); EOSINOPHILS 5.3 % (0-7); IMMATURE GRANULOCYTES 0.5 % (0-5); LYMPHOCYTES 10.1 % (15-50); MCH 29.1 pg (26.0-34.0); MCHC 33.9 g/dL (31.0-37.0); MCV 85.9 fL (80.0-100.0); MEAN PLATELET VOLUME 10.4 fL (7.4-10.4); MONOCYTES 7.1 % (2-11); PLATELET COUNT 82 10x3/uL (130-400); RDW 15.3 % (11.5-14.5); WBC 6.4 10x3/uL (4.8-10.8)
[2018-07-11 05:39] LABS: HEMATOCRIT 30.4 % (36.0-48.0); HEMOGLOBIN 10.3 g/dL (12-16); RBC 3.54 10x6/uL (4.00-5.40)
[2018-07-11 05:40] LABS: ALBUMIN 3.2 g/dL (3.4-5.0); BILIRUBIN - TOTAL 1.31 mg/dL (0.2-1.3); CALCIUM 8.6 mg/dL (8.5-10.1); CARBON DIOXIDE 28.2 mmol/L (21.0-32.0); CREATININE - SERUM 8.2 mg/dL (0.6-1.3); POTASSIUM - SERUM 4.2 mmol/L (3.5-5.1); PROTEIN - SERUM 6.8 g/dL (6.4-8.2); VANCOMYCIN - RANDOM 13.7 ug/mL (10.0-20.0)
[2018-07-11 05:42] LABS: PHOSPHOROUS 4.1 mg/dL (2.5-4.9)
[2018-07-12] VITALS (24 sets, daily range): BP systolic 83–112; BP diastolic 49–72
[2018-07-12 06:07] LABS: BASOPHILS 0.1 % (0-2); EOSINOPHILS 6.3 % (0-7); HEMATOCRIT 31.4 % (36.0-48.0); HEMOGLOBIN 10.7 g/dL (12-16); IMMATURE GRANULOCYTES 0.5 % (0-5); LYMPHOCYTES 7.6 % (15-50); MCH 29.6 pg (26.0-34.0); MCHC 34.1 g/dL (31.0-37.0); MCV 86.7 fL (80.0-100.0); MEAN PLATELET VOLUME 11.4 fL (7.4-10.4); NEUTROPHILS 77.5 % (40-80); PLATELET COUNT 95 10x3/uL (130-400); RBC 3.62 10x6/uL (4.00-5.40); RDW 15.6 % (11.5-14.5); WBC 7.3 10x3/uL (4.8-10.8)
[2018-07-12 06:47] LABS: ANION GAP 15.7 mmol/L (8-16); BILIRUBIN - TOTAL 0.9 mg/dL (0.2-1.3); CALCIUM 8.9 mg/dL (8.5-10.1); CARBON DIOXIDE 27.5 mmol/L (21.0-32.0); CREATININE - SERUM 9.5 mg/dL (0.6-1.3); PHOSPHOROUS 3.9 mg/dL (2.5-4.9); POTASSIUM - SERUM 4.2 mmol/L (3.5-5.1); PROTEIN - SERUM 6.9 g/dL (6.4-8.2); VANCOMYCIN - RANDOM 26.4 ug/mL (10.0-20.0)
[2018-07-13] VITALS (26 sets, daily range): BP systolic 83–110; BP diastolic 52–68
[2018-07-13 05:25] LABS: HEMOGLOBIN 10.3 g/dL (12-16); MCHC 33.2 g/dL (31.0-37.0); MCV 87.3 fL (80.0-100.0); MEAN PLATELET VOLUME 10.9 fL (7.4-10.4); RBC 3.55 10x6/uL (4.00-5.40); RDW 15.3 % (11.5-14.5); WBC 5.8 10x3/uL (4.8-10.8)
[2018-07-13 05:45] LABS: ALBUMIN 2.8 g/dL (3.4-5.0); ANION GAP 11.7 mmol/L (8-16); BILIRUBIN - TOTAL 0.7 mg/dL (0.2-1.3); CARBON DIOXIDE 32.1 mmol/L (21.0-32.0); CREATININE - SERUM 8.2 mg/dL (0.6-1.3); POTASSIUM - SERUM 3.8 mmol/L (3.5-5.1); PROTEIN - SERUM 6.7 g/dL (6.4-8.2)
[2018-07-14] VITALS (30 sets, daily range): BP systolic 88–116; BP diastolic 36–76
[2018-07-14 06:01] LABS: BASOPHILS 0.3 % (0-2); EOSINOPHILS 5.1 % (0-7); HEMATOCRIT 32.6 % (36.0-48.0); IMMATURE GRANULOCYTES 0.6 % (0-5); LYMPHOCYTES 17.2 % (15-50); MCH 29.4 pg (26.0-34.0); MCHC 33.7 g/dL (31.0-37.0); MCV 87.2 fL (80.0-100.0); MEAN PLATELET VOLUME 11.1 fL (7.4-10.4); MONOCYTES 6.1 % (2-11); NEUTROPHILS 70.7 % (40-80); PLATELET COUNT 117 10x3/uL (130-400); RBC 3.74 10x6/uL (4.00-5.40); RDW 15.6 % (11.5-14.5); WBC 6.4 10x3/uL (4.8-10.8)
[2018-07-14 06:19] LABS: ALBUMIN 2.9 g/dL (3.4-5.0); ANION GAP 16.9 mmol/L (8-16); BILIRUBIN - TOTAL 0.71 mg/dL (0.2-1.3); CARBON DIOXIDE 27.2 mmol/L (21.0-32.0); CREATININE - SERUM 9.6 mg/dL (0.6-1.3); POTASSIUM - SERUM 4.1 mmol/L (3.5-5.1); PROTEIN - SERUM 6.8 g/dL (6.4-8.2)
[2018-07-15] VITALS (24 sets, daily range): BP systolic 30–107; BP diastolic 41–77
[2018-07-15 06:31] LABS: BASOPHILS 0.2 % (0-2); EOSINOPHILS 5.6 % (0-7); HEMATOCRIT 30.9 % (36.0-48.0); HEMOGLOBIN 10.4 g/dL (12-16); IMMATURE GRANULOCYTES 0.8 % (0-5); LYMPHOCYTES 15.6 % (15-50); MCH 29.3 pg (26.0-34.0); MCHC 33.7 g/dL (31.0-37.0); MEAN PLATELET VOLUME 11.4 fL (7.4-10.4); MONOCYTES 5.2 % (2-11); NEUTROPHILS 72.6 % (40-80); PLATELET COUNT 122 10x3/uL (130-400); RBC 3.55 10x6/uL (4.00-5.40); RDW 15.5 % (11.5-14.5)
[2018-07-15 06:42] LABS: ALBUMIN 2.7 g/dL (3.4-5.0); BILIRUBIN - TOTAL 0.72 mg/dL (0.2-1.3); CALCIUM 8.7 mg/dL (8.5-10.1); CARBON DIOXIDE 26.4 mmol/L (21.0-32.0); CREATININE - SERUM 11.5 mg/dL (0.6-1.3); POTASSIUM - SERUM 4.4 mmol/L (3.5-5.1); PROTEIN - SERUM 6.4 g/dL (6.4-8.2)
[2018-07-15 06:46] LABS: WBC 8.5 10x3/uL (4.8-10.8)
[2018-07-16] VITALS (23 sets, daily range): BP systolic 85–104; BP diastolic 42–65
[2018-07-16 06:16] LABS: BASOPHILS 0.3 % (0-2); EOSINOPHILS 8.4 % (0-7); HEMOGLOBIN 10.9 g/dL (12-16); IMMATURE GRANULOCYTES 0.5 % (0-5); LYMPHOCYTES 18.6 % (15-50); MCH 29.1 pg (26.0-34.0); MCV 88.2 fL (80.0-100.0); MEAN PLATELET VOLUME 11.6 fL (7.4-10.4); MONOCYTES 5.1 % (2-11); NEUTROPHILS 67.1 % (40-80); PLATELET COUNT 142 10x3/uL (130-400); RBC 3.74 10x6/uL (4.00-5.40); RDW 15.9 % (11.5-14.5); WBC 7.6 10x3/uL (4.8-10.8)
[2018-07-16 06:50] LABS: ANION GAP 14.7 mmol/L (8-16); CALCIUM 8.9 mg/dL (8.5-10.1); CARBON DIOXIDE 29.7 mmol/L (21.0-32.0); POTASSIUM - SERUM 4.4 mmol/L (3.5-5.1); VANCOMYCIN - RANDOM 13.1 ug/mL (10.0-20.0)
[2018-07-17] VITALS (24 sets, daily range): BP systolic 82–114; BP diastolic 44–67
[2018-07-17 06:11] LABS: BASOPHILS 0.3 % (0-2); EOSINOPHILS 9.3 % (0-7); HEMATOCRIT 33.3 % (36.0-48.0); LYMPHOCYTES 21.1 % (15-50); MCH 29.3 pg (26.0-34.0); MCV 88.6 fL (80.0-100.0); MONOCYTES 4.6 % (2-11); NEUTROPHILS 63.7 % (40-80); PLATELET COUNT 165 10x3/uL (130-400); RBC 3.76 10x6/uL (4.00-5.40); WBC 7.3 10x3/uL (4.8-10.8)
[2018-07-17 06:45] LABS: ANION GAP 16.3 mmol/L (8-16); CALCIUM 8.9 mg/dL (8.5-10.1); CARBON DIOXIDE 27.3 mmol/L (21.0-32.0); CREATININE - SERUM 10.9 mg/dL (0.6-1.3); POTASSIUM - SERUM 4.6 mmol/L (3.5-5.1); VANCOMYCIN - RANDOM 12.2 ug/mL (10.0-20.0)
[2018-07-18] VITALS (13 sets, daily range): BP systolic 80–108; BP diastolic 43–68
[2018-07-18 06:00] LABS: HEMATOCRIT 31.6 % (36.0-48.0); HEMOGLOBIN 10.6 g/dL (12-16); LYMPHOCYTES 18.6 % (15-50); MCH 29.4 pg (26.0-34.0); MCHC 33.5 g/dL (31.0-37.0); MCV 87.8 fL (80.0-100.0); MEAN PLATELET VOLUME 10.8 fL (7.4-10.4); NEUTROPHILS 68.7 % (40-80); PLATELET COUNT 168 10x3/uL (130-400); WBC 8.1 10x3/uL (4.8-10.8)
[2018-07-18 06:20] LABS: CALCIUM 9.3 mg/dL (8.5-10.1); CARBON DIOXIDE 28.8 mmol/L (21.0-32.0); CREATININE - SERUM 8.4 mg/dL (0.6-1.3); PHOSPHOROUS 4.5 mg/dL (2.5-4.9); POTASSIUM - SERUM 4.8 mmol/L (3.5-5.1)
[2018-07-18] MEDS ORDERED: ALBUTEROL2.5 MG/3 M UPD (11:39)
[2018-07-18] MEDS ORDERED: MIDODRINE HCL2.5 MG PO (11:39)
[2018-07-18] MEDS ORDERED: ASPIRIN81 MG PO (11:39)
[2018-07-18] MEDS ORDERED: PROCRIT/EP4000 UNITS SC (11:39)
[2018-07-18] MEDS ORDERED: Narcan INJ IV (11:40)
[2018-07-18] MEDS ORDERED: HYDROCODONE-APA1 TAB PO (11:40)
[2018-07-18] MEDS ORDERED: COLACE100 MG PO (11:41)
[2018-07-18] MEDS ORDERED: SENOKOT-S TABLE1 TAB PO (11:42)
[2018-07-18] MEDS ORDERED: ONDANSETRON4 MG/2 M3 IV (11:42)
[2018-07-18] MEDS ORDERED: FLORAJEN3 CAPS460 MG PO (11:42)
[2018-07-18] MEDS ORDERED: PROTONIX40 MG PO (11:42)
[2018-07-18] MEDS ORDERED: REGLAN INJ10 MG/2 ML IV (11:42)
== END 2018-07-18 13:17 | DRG 219 ==
LOC: D.SDCHOLD 05:00 → D.CVICU 05:00 → D.SDCHOLD 06:12 → D.CVICU 12:48 → D.CLR 07-14 15:33 → D.CVICU 07-14 15:36
PROVIDERS: Internal Medicine Cardiovascular Disease; Internal Medicine Nephrology; Thoracic Surgery (Cardiothoracic Vascular Surgery)
PROC: 02UG0JZ Supplement Mitral Valve with Synthetic Substitute, Open Approach (ICD-10-PCS; 2018-07-08)
PROC: 02BG0ZZ Excision of Mitral Valve, Open Approach (ICD-10-PCS; 2018-07-08)
PROC: 5A1221Z Performance of Cardiac Output, Continuous (ICD-10-PCS; 2018-07-08)
PROC: B24BZZ4 Ultrasonography of Heart with Aorta, Transesophageal (ICD-10-PCS; 2018-07-08)
PROC: 02RJ08Z Replacement of Tricuspid Valve with Zooplastic Tissue, Open Approach (ICD-10-PCS; principal; 2018-07-08 07:30)
DX: I07.1 Rheumatic tricuspid insufficiency (principal); N18.6 End stage renal disease; I12.0 Hypertensive chronic kidney disease with stage 5 chronic kidney disease or end stage renal disease; J90 Pleural effusion, not elsewhere classified; J98.11 Atelectasis; Q89.8 Other specified congenital malformations; I44.2 Atrioventricular block, complete; D62 Acute posthemorrhagic anemia; N39.0 Urinary tract infection, site not specified; C79.82 Secondary malignant neoplasm of genital organs; Z99.2 Dependence on renal dialysis; I20.9 Angina pectoris, unspecified; Z95.0 Presence of cardiac pacemaker; K43.2 Incisional hernia without obstruction or gangrene; K42.9 Umbilical hernia without obstruction or gangrene; D69.6 Thrombocytopenia, unspecified; D63.1 Anemia in chronic kidney disease; B96.1 Klebsiella pneumoniae [K. pneumoniae] as the cause of diseases classified elsewhere; C54.1 Malignant neoplasm of endometrium